=== PATIENT | female | born 1990 | race American Indian/Alaskan Native ===

== ENCOUNTER 2016-11-12 05:44 | Emergency (ER) | payer BC, OTHER ==
[2016-11-12 06:04] VITALS: BP 118/61; PULSE 70; RESP 16; TEMP 97.6; O2SAT 100
--- NOTE | 2016-11-12 06:30 | ED PDOC ---
Lower Extremity Pain/Injury Time Seen by Provider: 11/12/16 06:10 Chief Complaint (Nursing): Lower Extremity Problem/Injury Chief Complaint (Provider): Right knee pain History Per: Patient History/Exam Limitations: no limitations Onset/Duration Of Symptoms: Days (1) Current Symptoms Are (Timing): Still Present Additional Complaint(s): Geovany Shirley is a 26 y/o female presenting to the ER on 11/12/2016 with complaints of right knee pain. She states pain originated yesterday as she was walking and felt pain in the right knee. She denies falling, slipping, or strenuous activity that may have caused the pain. Of note, patient requested a blood test upon initial evaluation because her urine was dark with a foul odor. Past Medical History Reviewed: Historical Data, Nursing Documentation, Vital Signs Vital Signs: Last Vital Signs Temp 97.6 F 11/12/16 06:01 Pulse 70 11/12/16 06:01 Resp 16 11/12/16 06:01 BP 118/61 11/12/16 06:01 Pulse Ox 100 11/12/16 06:01 - Medical History PMH: No Chronic Diseases - Surgical History Surgical History: No Surg Hx - Family History Family History: States: Unknown Family Hx - Social History Drugs: Denies - Home Medications Home Medications: Ambulatory Orders Medication Instructions Recorded Naproxen [Naprosyn] 500 mg PO BID PRN #30 tab 05/12/16 Ibuprofen [Motrin Tab] 600 mg PO Q6 #30 tab 11/12/16 - Allergies Allergies/Adverse Reactions: Allergies Allergy/AdvReac Type Severity Reaction Status Date / Time No Known Allergies Allergy Verified 05/12/16 13:37 Review of Systems ROS Statement: Except As Marked, All Systems Reviewed And Found Negative Constitutional: Negative for: Fever Musculoskeletal: Positive for: Leg Pain (right knee) Physical Exam - Reviewed Nursing Documentation Reviewed: Yes Vital Signs Reviewed: Yes - Physical Exam Appears: Positive for: Non-toxic, No Acute Distress Extremity: Positive for: Normal ROM (near full ROM), Other (no effusion, negative valgus and varus stress test. distally neurovascularly intact ). Negative for: Tenderness, Deformity, Swelling Neurologic/Psych: Positive for: Alert, Oriented. Negative for: Motor/Sensory Deficits - ECG O2 Sat by Pulse Oximetry: 100 Medical Decision Making Medical Decision Makin:10 Initial Impression- Right knee pain Initial Plan- * Urine preg * Urine dip * XR Knee * Ibuprofen 600 mg PO 650AM: Xray appears normal, normal dip, will d/c home w/ f/u w/ [facility] Documented by Javi Amador, acting as a scribe for Fernie Murphy MD. All medical record entries made by the Scribe were at my direction and personally dictated by me. I have reviewed the chart and agree that the record accurately reflects my personal performance of the history, physical exam, medical decision making, and the department course for this patient. I have also personally directed, reviewed, and agree with the discharge instructions and disposition. Disposition - Clinical Impression Clinical Impression: Knee pain - Patient ED Disposition Is Patient to be Admitted: No - Disposition Disposition: Routine/Home Disposition Time: 06:50 Condition: IMPROVED Prescriptions: RX: Ibuprofen [Motrin Tab] 600 mg PO Q6 #30 tab Instructions: Knee Pain (ED)
--- NOTE | 2016-11-12 13:40 | RAD ---
PROCEDURE: Right Knee Radiographs. HISTORY: R knee pain COMPARISON: None. FINDINGS: BONES: Bone alignment and mineralization are normal. There is no acute fracture or bone destruction. JOINTS: The joint spaces are preserved. JOINT EFFUSION: None. OTHER FINDINGS: There is mild focal thickening of the inferior patellar tendon at its attachment to the tibial tuberosity PICC IMPRESSION: Findings may represent patellar tendinosis. No acute fracture or dislocation.
== END 2016-11-12 07:10 | disposition home or self-care (01) ==
LOC: H.ER 05:44
DX: M25.561 Pain in right knee (principal)

== ENCOUNTER 2017-05-17 08:36 | Emergency (ER) | payer BC, OTHER ==
[2017-05-17 08:40] VITALS: BP 114/62; PULSE 68; RESP 20; TEMP 97.4; O2SAT 100; BMI 38.4
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
--- NOTE | 2017-05-17 10:39 | CT ---
PROCEDURE: CT HEAD WITHOUT CONTRAST. HISTORY: r/o bleed COMPARISON: None available. TECHNIQUE: Axial computed tomography images were obtained through the head/brain without intravenous contrast. Radiation dose: Total exam DLP = 1235.25 mGy-cm. This CT exam was performed using one or more of the following dose reduction techniques: Automated exposure control, adjustment of the mA and/or kV according to patient size, and/or use of iterative reconstruction technique. FINDINGS: HEMORRHAGE: No acute parenchymal, subarachnoid nor extra-axial hemorrhage. BRAIN: No mass effect or edema. No atrophy or chronic microvascular ischemic changes. VENTRICLES: Unremarkable. No hydrocephalus. CALVARIUM: There are no acute calvarial fractures. Questionable mild left frontotemporal scalp swelling. PARANASAL SINUSES: Frontal sinuses are underpneumatized/ hypoplastic. Remaining visualized paranasal sinuses well-developed and currently well-aerated. MASTOID AIR CELLS: Unremarkable as visualized. No inflammatory changes. OTHER FINDINGS: None. IMPRESSION: No acute intracranial hemorrhage. . There appears to be mild left frontotemporal scalp swelling.
== END 2017-05-17 11:53 | disposition home or self-care (01) ==
LOC: H.ER 08:36
DX: S00.83XA Contusion of other part of head, initial encounter (principal); Y04.0XXA Assault by unarmed brawl or fight, initial encounter

== ENCOUNTER 2018-08-03 19:20 | Emergency (ER) | payer BC, OTHER ==
[2018-08-03 19:20] VITALS: BMI 38.4
[2018-08-03 20:49] LABS: BASO # 0.1 K/uL (0.0-0.2); BASO % 0.9 % (0.0-2.0); EOS # 0.1 K/uL (0.0-0.7); HEMOGLOBIN 12.2 g/dL (12.0-16.0); LYMPH # 2.5 K/uL (1.0-4.3); LYMPH % 31.5 % (20.0-40.0); MEAN CELL VOLUME 80.6 fl (81.0-99.0); MEAN CORPUSCULAR HEMOGLOBIN 26.6 pg (27.0-31.0); MONO # 0.5 K/uL (0.0-0.8); MONO % 6.7 % (0.0-10.0); NEUT # 4.8 K/uL (1.8-7.0); NEUT % 59.9 % (50.0-75.0); NRBC % 0.1 % (0.0-0.0); RBC 4.56 Mil/uL (3.80-5.20); RED CELL DISTRIBUTION WIDTH 16.1 % (11.5-14.5); WHITE BLOOD COUNT 8.1 K/uL (4.8-10.8)
[2018-08-03 20:59] LABS: BLOOD UREA NITROGEN 10 mg/dl (7-17); CALCIUM 9.8 mg/dL (8.4-10.2); GFR NON-AFRICAN AMERICAN > 60
[2018-08-03 21:08] LABS: SQUAMOUS EPITHIAL 1 /hpf (0-5); URINE BACTERIA RARE (<OCC); URINE BILIRUBIN NEGATIVE (NEGATIVE); URINE BLOOD SMALL (NEGATIVE); URINE CLARITY SLIGHTY-CLOUDY (Clear); URINE COLOR YELLOW (YELLOW); URINE GLUCOSE (UA) NEG (Normal); URINE LEUKOCYTE ESTERASE NEG Leu/uL (Negative); URINE PROTEIN NEGATIVE (NEGATIVE); URINE UROBILINOGEN 0.2-1.0 mg/dL (0.2-1.0)
--- NOTE | 2018-08-03 21:39 | ED PDOC ---
HPI: Female Pain Time Seen by Provider: 08/03/18 20:23 Chief Complaint (Nursing): Female Genitourinary Chief Complaint (Provider): Female Genitourinary History Per: Patient History/Exam Limitations: no limitations Onset/Duration Of Symptoms: Days (x1 week) Current Symptoms Are (Timing): Still Present Additional Complaint(s): 27 year old female with no significant past medical history presents to the ED with vaginal bleeding for one week. Patient is currently expecting her menstrual period, but has only had scant vaginal spotting for the past one week. She states there is no possibility of because she is a lesbian. Patient is not on any control. She has some dysuria but no abdominal pain, frequency or any other medical complaints. Patient has had 2 full terms with normal delivery. PMD: Hermelindo Abnormal Vaginal Bleeding: Yes : 2 Past Medical History Reviewed: Historical Data Vital Signs: Last Vital Signs Temp 97.7 F 08/03/18 19:28 Pulse 72 08/03/18 19:28 Resp 18 08/03/18 19:28 BP 111/69 08/03/18 19:28 Pulse Ox 100 08/03/18 19:28 - Medical History PMH: No Chronic Diseases - Surgical History Surgical History: No Surg Hx - Family History Family History: States: Unknown Family Hx - Social History Current smoker - smoking cessation education provided: No Ex-Smoker (has not smoked in the last 12 months): No Alcohol: None Drugs: Denies - Home Medications Home Medications: Ambulatory Orders Medication Instructions Recorded Naproxen [Naprosyn] 500 mg PO BID PRN #30 tab 05/12/16 Ibuprofen [Motrin Tab] 600 mg PO Q6 #30 tab 11/12/16 Naproxen [Naprosyn] 500 mg PO Q12H #20 tab 05/17/17 - Allergies Allergies/Adverse Reactions: Allergies Allergy/AdvReac Type Severity Reaction Status Date / Time No Known Allergies Allergy Verified 05/17/17 08:47 Review of Systems ROS Statement: Except As Marked, All Systems Reviewed And Found Negative Genitourinary Female: Positive for: Dysuria, Vaginal Bleeding. Negative for: Frequency Physical Exam - Reviewed Nursing Documentation Reviewed: Yes Vital Signs Reviewed: Yes - Physical Exam Appears: Positive for: Non-toxic, No Acute Distress Head Exam: Positive for: ATRAUMATIC, NORMOCEPHALIC Skin: Positive for: Normal Color, Warm, Dry Eye Exam: Positive for: Normal appearance, EOMI, PERRL ENT: Positive for: Normal ENT Inspection Neck: Positive for: Normal, Painless ROM, Supple Cardiovascular/Chest: Positive for: Regular Rate, Rhythm. Negative for: Murmur Respiratory: Positive for: Normal Breath Sounds. Negative for: Respiratory Distress Gastrointestinal/Abdominal: Positive for: Normal Exam, Soft. Negative for: Tenderness Pelvic Exam: Positive for: Other (deferred) Back: Positive for: Normal Inspection Extremity: Positive for: Normal ROM. Negative for: Pedal Edema, Deformity Neurologic/Psych: Positive for: Alert, Oriented (x3). Negative for: Motor/Sensory Deficits - Laboratory Results Result Diagrams: 08/03/18 20:46 08/03/18 20:46 - ECG O2 Sat by Pulse Oximetry: 100 (RA) Pulse Ox Interpretation: Normal Medical Decision Making Medical Decision Making: Time: 2030 Initial Impression: 27 year old female with vaginal bleeding Initial Plan: --Labs --US Time: 2153 Transvaginal US Findings Uterus Measures 7.62 x 5.76 x 4.1 cm. Normal in size and appearance. No fibroid or other mass lesion seen. Endometrium Measures 9.4 mm in diameter. Unremarkable. Cervix No cervical abnormality identified. Right ovary Measures 3.39 x 3.4 x 2.45 cm. No solid mass. Normal flow. Multiple follicles. Left ovary Measures 3.47 x 2 x 2.24 cm. No solid mass. Normal flow. Multiple follicles. Free fluid No significant free fluid noted. Other Findings None. Impression Multiple bilateral ovarian follicles. Please correlate clinically to exclude polycystic ovarian syndrome. Time: 2240 --Patient is stable for discharge. Diagnosis dysfunctional uterine bleed, patient to follow up with CERTIFIED ART THERAPIST. Scribe Attestation: Documented by Veronique Arana, acting as a scribe for Reg Yu MD Provider Scribe Attestation: All medical record entries made by the Scribe were at my direction and personally dictated by me. I have reviewed the chart and agree that the record accurately reflects my personal performance of the history, physical exam, medical decision making, and the department course for this patient. I have also personally directed, reviewed, and agree with the discharge instructions and disposition. Disposition - Clinical Impression Clinical Impression: DUB (dysfunctional uterine bleeding) - Disposition Disposition Time: 22:41 Condition: STABLE Instructions: Absent or Irregular Periods Forms: [employer] (Indonesian)
[2018-08-04 01:08] VITALS: BP 117/81; PULSE 76; RESP 17; TEMP 98; O2SAT 100
--- NOTE | 2018-08-04 10:24 | US ---
Date of service: 08/03/2018 HISTORY: vaginal bleeding COMPARISON: None available. TECHNIQUE: Transvaginal FINDINGS: UTERUS: Measures cm. 7.6 x 5.8 x 4.1 no fibroid or other mass lesion seen. ENDOMETRIUM: Measures 9 mm in diameter. Unremarkable. CERVIX: No cervical abnormality identified. RIGHT OVARY: Measures 3.4 x 3.4 x 2.5 cm. No solid mass. Normal flow. LEFT OVARY: Measures 3.5 x 2.0 x 2.2 cm. No solid mass. Normal flow. FREE FLUID: No significant free fluid noted. OTHER FINDINGS: None. IMPRESSION: Unremarkable pelvic ultrasound. The preliminary findings for this examination were reported by [facility] at 9:54 p.m. on 08/03/2018. There is concurrence of this report with the preliminary findings.
== END 2018-08-03 22:56 | disposition home or self-care (01) ==
LOC: H.ER 19:20
DX: N93.8 Other specified abnormal uterine and vaginal bleeding (principal)

== ENCOUNTER 2018-11-10 17:58 | Emergency (ER) | payer SELFPAY ==
[2018-11-10 17:58] VITALS: BMI 38.4
[2018-11-10 18:21] VITALS: BP 110/74; PULSE 71; RESP 16; TEMP 98.3; O2SAT 100
--- NOTE | 2018-11-10 20:42 | ED PDOC ---
Lower Extremity Pain/Injury Time Seen by Provider: 11/10/18 18:24 Chief Complaint (Nursing): Lower Extremity Problem/Injury Chief Complaint (Provider): Right Foot Swelling History Per: Patient History/Exam Limitations: no limitations Onset/Duration Of Symptoms: Days (x3) Current Symptoms Are (Timing): Still Present Additional Complaint(s): 28 year old female presents to the ED for evaluation of atraumatic right foot swelling without pain for the past three days. Patient notes that she is not an avid walk. Denies pain, numbness / tingling in foot, and previous injuries to foot. PMD: none provided Past Medical History Reviewed: Historical Data, Nursing Documentation, Vital Signs Vital Signs: Last Vital Signs Temp 98.3 F 11/10/18 18:20 Pulse 71 11/10/18 18:20 Resp 16 11/10/18 18:20 BP 110/74 11/10/18 18:20 Pulse Ox 100 11/10/18 18:20 - Medical History PMH: No Chronic Diseases - Surgical History Other surgeries: left wrist surgery - Family History Family History: States: No Known Family Hx - Social History Current smoker - smoking cessation education provided: No Alcohol: Social Drugs: Denies - Home Medications Home Medications: Ambulatory Orders Medication Instructions Recorded RX: Naproxen [Naprosyn] 500 mg PO BID PRN #30 tab 05/12/16 RX: Ibuprofen [Motrin Tab] 600 mg PO Q6 #30 tab 11/12/16 Naproxen [Naprosyn] 500 mg PO Q12H #20 tab 05/17/17 Meloxicam [Mobic] 1 - 2 tab PO DAILY PRN #10 tab 11/10/18 - Allergies Allergies/Adverse Reactions: Allergies Allergy/AdvReac Type Severity Reaction Status Date / Time No Known Allergies Allergy Verified 11/10/18 18:20 Review of Systems ROS Statement: Except As Marked, All Systems Reviewed And Found Negative Musculoskeletal: Positive for: Other (right foot swelling) Neurological: Negative for: Numbness (or tingling to right foot) Physical Exam - Reviewed Nursing Documentation Reviewed: Yes Vital Signs Reviewed: Yes - Physical Exam Appears: Positive for: Well, Non-toxic, No Acute Distress Skin: Positive for: Normal Color, Warm Pulses-Dorsalis Pedis (L): 2+ Pulses-Dorsalis Pedis (R): 2+ Extremity: Positive for: Capillary Refill (less than two seconds). Negative for: Calf Tenderness (or swelling bilaterally), Other (break in skin integrity, warmth, or erythema to right foot) Neurologic/Psych: Positive for: Alert, Oriented (x3) - ECG O2 Sat by Pulse Oximetry: 100 (RA) Pulse Ox Interpretation: Normal Medical Decision Making Medical Decision Making: Time: 1831 Initial Impression: right foot swelling Initial Plan: --Right foot XR Scribe Attestation: Documented by Neida Alston, acting as a scribe for Estevan Rendon PA-C. Provider Scribe Attestation: All medical record entries made by the Scribe were at my direction and personally dictated by me. I have reviewed the chart and agree that the record accurately reflects my personal performance of the history, physical exam, medical decision making, and the department course for this patient. I have also personally directed, reviewed, and agree with the discharge instructions and disposition. Disposition - Clinical Impression Clinical Impression: Foot swelling - Patient ED Disposition Is Patient to be Admitted: No - Disposition Referrals: Podiatry Clinic [Outside] Disposition: Routine/Home Disposition Time: 19:15 Condition: STABLE Additional Instructions: FOLLOW UP WITH TERMITE CONTROL REPRESENTATIVE FOR FURTHER EVALUATION RETURN TO ED IMMEDIATELY IF SYMPTOMS WORSEN JERRY SOLORZANO, thank you for letting us take care of you today. Your provider was Asa Amador MD and you were treated for RT FOOT SWELLING. The emergency medical care you received today was directed at your acute symptoms. If you were prescribed any medication, please fill it and take as directed. It may take several days for your symptoms to resolve. Return to the Emergency Department if your symptoms worsen, do not improve, or if you have any other problems. Please contact your doctor or call one of the physicians/clinics you have been referred to that are listed on the Patient Visit Information form that is included in your discharge packet. Bring any paperwork you were given at discharge with you along with any medications you are taking to your follow up visit. Our treatment cannot replace ongoing medical care by a primary care provider outside of the emergency department. Thank you for allowing the [facility] team to be part of your care today. If you had an X-Ray or CT scan: A Radiologist will review the ED reading if any change in treatment is needed we will contact you. If you had a blood, urine, or wound culture: It will take several days for the results, if any change in treatment is needed we will contact you. If you had an STI test: It will take 48 hours for the results. Please call after 1 week if you have not heard back. Prescriptions: Meloxicam [Mobic] 1 - 2 tab PO DAILY PRN #10 tab PRN Reason: Pain Instructions: Metatarsalgia Forms: [employer] (Bulgarian)
--- NOTE | 2018-11-11 10:54 | RAD ---
Date of service: 11/10/2018 PROCEDURE: Right Foot Radiographs. HISTORY: swelling COMPARISON: None. FINDINGS: BONES: Normal. No fracture. JOINTS: Normal. SOFT TISSUES: Normal. OTHER FINDINGS: None. IMPRESSION: Normal right foot radiographs.
== END 2018-11-10 21:15 | disposition home or self-care (01) ==
LOC: H.ER 17:58
DX: M79.89 Other specified soft tissue disorders (principal)

== ENCOUNTER 2018-12-03 17:44 | Emergency (ER) | payer SELFPAY ==
[2018-12-03 17:44] VITALS: BMI 38.4
[2018-12-03 17:52] VITALS: TEMP 98
[2018-12-03] MEDS ORDERED: Famotidine 40 MG/5 ML PO STA (18:12)
--- NOTE | 2018-12-03 18:28 | ED PDOC ---
HPI: Chest Pain Time Seen by Provider: 12/03/18 17:58 Chief Complaint (Nursing): Chest Pain Additional History Per: Patient Additional Complaint(s): 28 y/o F with no significant PMH comes to the ER c/o 1 hour hx of epigastric/chest pain. Patient reports she woke up c/o intermittent pain, sharp pain, 10/10, non-radiating, movement makes it worse, not associated with any n/v/d/, denies any dizziness/palpitations/headaches/blurred vision/SOB, dysuria or weakness. PMH: Denies PSH: Denies Allg: NKDA Meds: Denies SH: Social alcohol use, no smoking or drug use FH: Denies any heart disease or HTN ROS: As per HPI Past Medical History Vital Signs: Last Vital Signs Temp 98 F 12/03/18 17:49 Pulse 67 12/03/18 17:49 Resp 16 12/03/18 17:49 BP 118/68 12/03/18 17:49 Pulse Ox 98 12/03/18 17:49 - Family History Family History: States: Unknown Family Hx - Home Medications Home Medications: Ambulatory Orders Medication Instructions Recorded Naproxen [Naprosyn] 500 mg PO BID PRN #30 tab 05/12/16 Ibuprofen [Motrin Tab] 600 mg PO Q6 #30 tab 11/12/16 Naproxen [Naprosyn] 500 mg PO Q12H #20 tab 05/17/17 Meloxicam [Mobic] 1 - 2 tab PO DAILY PRN #10 tab 11/10/18 Naproxen [Naprosyn] 500 mg PO Q12H #20 tab 12/03/18 - Allergies Allergies/Adverse Reactions: Allergies Allergy/AdvReac Type Severity Reaction Status Date / Time No Known Allergies Allergy Verified 12/03/18 17:49 REYMUNDO Risk Score for UA/NSTEMI - REYMUNDO Risk Score Age > 64: NO 3 or more CAD Risk Factors: NO Known CAD (Stenosis greater than 50%): NO Aspirin use in past 7 days: NO Severe Angina: NO EKG ST changes greater than 0.5mm: NO Positive Cardiac Marker: NO REYMUNDO Score: 0 Risk %: 5% Curb-65 Severity Score - CURB-65 Severity Score Confusion: No Bun >19mg/dl (>7mmol/L): No Respiratory Rate greater than/equal to 30: No Systolic BP <90 or Diastolic BP less than/equal 60mmHg: No Age >64: No Curb-65 Score: 0 Percentage 30-day mortality: 0.6% Wells Criteria for PE - Wells Criteria for Pulmonary Embolism Clinical Signs and Symptoms of DVT: No P.E is #1 Diagnosis, or Equally Likely: No Heart Rate >100: No Immobilization at least 3 days;Surgery previous 4 weeks: No Previous, objectively diagnosed PE or DVT: No Hemoptysis: No Malignancy w/treatment within 6 months, or palliative: No Total Score: 0 Review of Systems Constitutional: Negative for: Fever, Chills, Sweats Eyes: Negative for: Pain, Vision Change ENT: Negative for: Ear Pain, Ear Discharge, Nose Pain Cardiovascular: Positive for: Chest Pain. Negative for: Palpitations, Orthopnea, Paroxysmal Noc. Dyspnea, Edema Respiratory: Negative for: Cough, Shortness of Breath, Hemoptysis Gastrointestinal: Positive for: Abdominal Pain (epigastric). Negative for: Nausea, Vomiting, Diarrhea Genitourinary Female: Negative for: Dysuria, Frequency Musculoskeletal: Negative for: Neck Pain, Shoulder Pain Skin: Negative for: Rash Neurological: Negative for: Weakness, Numbness, Incoordination Psych: Negative for: Anxiety Physical Exam - Physical Exam Appears: Positive for: No Acute Distress Head Exam: Positive for: ATRAUMATIC, NORMAL INSPECTION, NORMOCEPHALIC Skin: Positive for: Normal Color Eye Exam: Positive for: Normal appearance ENT: Positive for: Normal ENT Inspection Neck: Positive for: Normal Cardiovascular/Chest: Positive for: Regular Rate, Rhythm, Chest Non Tender (Epigastric tenderness). Negative for: Edema, Gallop, Bradycardia, Tachycardia Respiratory: Positive for: Normal Breath Sounds. Negative for: Decreased Breath Sounds, Accessory Muscle Use, Wheezing Gastrointestinal/Abdominal: Positive for: Soft, Tenderness (Epigastric ). Negative for: Distended, Guarding, Rebound Back: Positive for: Normal Inspection. Negative for: L CVA Tenderness, R CVA Tenderness Extremity: Positive for: Normal ROM. 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 Negative for: Lethargic, Motor/Sensory Deficits - ECG O2 Sat by Pulse Oximetry: 98 - Progress ED Course And Treament: A/P: 28 y/o F with no significant PMH comes to the ER c/o 1 hour hx of epigastric/chest pain. - Mild Epigastric tenderness - EKG - PEPCID PO STAT - Reevaluation Case discussed with Dr. Cruz Patient understands and agrees with plan Transfer of care to Dr. Cruz 19:00 Re-evaluation Time: 19:00 (Will transfer care to Dr. Cruz) Condition: Re-examined Medical Decision Making Medical Decision Making: DDX: costochondritis vs Gastritis Disposition - Clinical Impression Clinical Impression: Chest wall pain - Patient ED Disposition Is Patient to be Admitted: No - Disposition Referrals: [facility] [Outside] Disposition: Routine/Home Disposition Time: 19:00 Condition: FAIR Prescriptions: Naproxen [Naprosyn] 500 mg PO Q12H #20 tab Instructions: Costochondritis Forms: [employer] (Ugandan), [facility] ED School/Work Excuse Print Language: BELARUSIAN
[2018-12-03 21:57] VITALS: BP 119/63; PULSE 64; RESP 18
[2018-12-04 09:53] VITALS: O2SAT 98
== END 2018-12-03 21:31 | disposition home or self-care (01) ==
LOC: H.ER 17:44
DX: R07.89 Other chest pain (principal)